=== PATIENT | female | born 1980 | race Caucasian/White ===

== ENCOUNTER 2019-02-25 07:30 | Emergency (ER) | payer OTHER ==
[~2019-02-25] VITALS: Ht 167.6 cm; Wt 61.2 kg
== END 2019-02-25 10:33 | disposition home or self-care (01) ==
LOC: ER 07:30
DX: B08.5 Enteroviral vesicular pharyngitis (principal)

== ENCOUNTER 2020-07-04 19:48 | Emergency (ER) | payer OTHER ==
[~2020-07-04] VITALS: Ht 167.6 cm; Wt 61.2 kg
[2020-07-04] MEDS ORDERED: [UNRECOGNIZED DRUG - OTHER] (20:32)
== END 2020-07-04 22:59 | disposition home or self-care (01) ==
LOC: ER 19:48
DX: R51.9 Headache, unspecified (principal)